=== PATIENT | female | born 2000 | race Asian ===

== ENCOUNTER 2022-12-29 11:44 | Emergency (ER) | payer SELFPAY ==
[2022-12-29] MEDS ORDERED: Sodium Chloride 0.9% 10 ML Syringe FLUSH PRN (12:11)
[2022-12-29] MEDS ORDERED: Sodium Chloride 0.9% 2.5 ML Syringe FLUSH PRN (12:11)
[2022-12-29] MEDS ORDERED: Morphine 4 MG/ML Syringe IVPUSH STA (12:12)
[2022-12-29] MEDS ORDERED: Sodium Chloride 0.9% 1,000 ML IV STA ×2 (12:12→13:03)
[2022-12-29] MEDS ORDERED: Ondansetron 4 MG/2 ML SDV IVPUSH STA (12:12)
[2022-12-29 12:25] LABS: BASOPHILS ABSOLUTE AUTO 0.1 K/uL (0.0-0.1); BASOPHILS PERCENT AUTO 0.8 % (0.0-1.5); EOSINOPHILS ABSOLUTE AUTO 0.4 K/uL (0.0-0.7); EOSINOPHILS PERCENT AUTO 5.9 % (0.0-7.0); HEMATOCRIT 42.9 % (36.0-46.0); HEMOGLOBIN 14.1 g/dL (12.0-16.0); LYMPHOCYTES ABSOLUTE AUTO 2.2 K/uL (0.6-2.4); LYMPHOCYTES PERCENT AUTO 34.4 % (16.0-40.0); MEAN CORPUSCULAR HEMOGLOBIN 29.3 pg (27.0-32.0); MEAN CORPUSCULAR HGB CONC 32.9 g/dL (31.0-37.0); MONOCYTES ABSOLUTE AUTO 0.3 K/uL (0.0-0.8); MONOCYTES PERCENT AUTO 5.3 % (0.0-15.0); NEUTROPHILS ABSOLUTE AUTO 3.5 K/uL (1.4-5.7); NEUTROPHILS PERCENT AUTO 53.6 % (48.0-80.0); NRBC ABSOLUTE 0 K/uL; PLATELET COUNT,PLT 358 K/uL (150-400); RED BLOOD CELL COUNT 4.82 M/uL (4.30-5.90); WHITE BLOOD CELL COUNT,WBC 6.43 K/uL (4.0-11.0)
[2022-12-29 12:51] LABS: A/G RATIO 0.9 (0.9-1.6); ALBUMIN 3.6 g/dL (3.4-5.0); BILIRUBIN TOTAL 0.3 mg/dL (0.2-1.0); CALCIUM 8.7 mg/dL (8.5-10.1); CARBON DIOXIDE,CO2 23.2 mmol/L (21.0-32.0); CREATININE 0.7 mg/dL (0.6-1.0); EST CRCL DRUG DOSING (CG) 107.93 mL/min; POTASSIUM,K 3.9 mmol/L (3.5-5.1); PROTEIN TOTAL,TP 7.4 g/dL (6.4-8.2)
[2022-12-29 14:32] LABS: APPEARANCE,URINE SLT CLOUDY; BILIRUBIN,URINE NEGATIVE (NEGATIVE); COLOR,URINE YELLOW; GLUCOSE,URINE NEGATIVE (NEGATIVE); KETONES,URINE NEGATIVE (NEGATIVE); LEUKOCYTE ESTERASE,URINE NEGATIVE (NEGATIVE); NITRITE,URINE NEGATIVE (NEGATIVE); OCCULT BLOOD,URINE MODERATE (NEGATIVE); PROTEIN,URINE NEGATIVE (NEGATIVE); UROBILINOGEN,URINE 0.2 EU/dL (<2.0)
[2022-12-29 14:43] LABS: BACTERIA,URINE FEW (NEGATIVE); EPITHELIAL CELLS,URINE OCCASIONAL (NONE-FEW); RBC,URINE 0-3 (0-2/HPF); WBC,URINE 0-4 (0-5/HPF)
[2022-12-29] MEDS ORDERED: Iopamidol 755 MG/ML 500 ML Multipack Bottle IVPUSH STA (15:11)
== END 2022-12-29 15:13 | disposition home or self-care (01) ==
LOC: MW.ED 11:44
DX: D73.89 Other diseases of spleen (principal); Z88.0 Allergy status to penicillin
CPT/HCPCS: 36415; 74177; 80053; 81001; 81025; 83690; 85025; 96361; 96374; 96375; 99284; J2270; J2405; J3490; J7030; Q9967

== ENCOUNTER 2025-02-19 19:58 | Emergency (ER) | payer OTHER ==
[2025-02-19 22:54] LABS: BASOPHILS ABSOLUTE AUTO 0.05 K/uL (0.00-0.20); BASOPHILS PERCENT AUTO 0.4 % (0.0-1.0); EOSINOPHILS ABSOLUTE AUTO 0.22 K/uL (0.00-0.45); EOSINOPHILS PERCENT AUTO 1.7 % (0.0-6.0); IMMATURE GRAN ABSOLUTE AUTO 0.05 K/uL (0.00-0.05); IMMATURE GRAN PERCENT AUTO 0.4 % (0.0-0.4); LYMPHOCYTES ABSOLUTE AUTO 2.64 K/uL (1.00-4.80); LYMPHOCYTES PERCENT AUTO 20.7 % (24.0-44.0); MEAN PLATELET VOLUME 9.3 fL (9.4-12.3); MONOCYTES ABSOLUTE AUTO 0.58 K/uL (0.00-0.80); MONOCYTES PERCENT AUTO 4.5 % (0.0-8.0); NEUTROPHILS ABSOLUTE AUTO 9.23 K/uL (1.80-7.70); NEUTROPHILS PERCENT AUTO 72.3 % (41.0-71.0); NRBC ABSOLUTE 0.00 K/uL (0.00-0.02); NRBC PERCENT 0.0 /100WBC (0.0-0.2); PLATELET COUNT,PLT 359 K/uL (150-400); RED BLOOD CELL COUNT 4.91 M/uL (4.10-5.30); WHITE BLOOD CELL COUNT,WBC 12.77 K/uL (3.9-11.3)
[2025-02-19 22:59] LABS: BLOOD UREA NITROGEN,BUN 8 mg/dL (7.0-18.0); CARBON DIOXIDE,CO2 24.4 mmol/L (21.0-32.0); CHLORIDE,CL 101 mmol/L (98-107); CREATININE 0.6 mg/dL (0.6-1.0); GLUCOSE RANDOM 91 mg/dL (74-106); POTASSIUM,K 3.7 mmol/L (3.5-5.1); SODIUM,NA 137 mmol/L (136-145)
[2025-02-19 23:01] LABS: ESTIMATED GFR 128 mL/min (>60)
[2025-02-19 23:08] LABS: APPEARANCE,URINE CLEAR; GLUCOSE,URINE NEGATIVE (NEGATIVE); OCCULT BLOOD,URINE NEGATIVE (NEGATIVE)
[2025-02-19 23:14] LABS: EPITHELIAL CELLS,URINE FEW (NONE-FEW)
== END 2025-02-20 01:26 | disposition left against medical advice (07) ==
LOC: MW.ED 19:58
DX: O21.9 Vomiting of pregnancy, unspecified (principal); Z88.0 Allergy status to penicillin; Z75.3 Unavailability and inaccessibility of health-care facilities; Z3A.09 9 weeks gestation of pregnancy
CPT/HCPCS: 36415; 80048; 81001; 85025; 96360; 99284; J7030; 99282

== ENCOUNTER 2025-04-07 18:39 | Emergency (ER) | payer OTHER ==
[2025-04-07 20:46] LABS: APPEARANCE,URINE CLEAR; GLUCOSE,URINE 250 mg/dL (NEGATIVE); OCCULT BLOOD,URINE NEGATIVE (NEGATIVE)
[2025-04-07 20:53] LABS: EPITHELIAL CELLS,URINE FEW (NONE-FEW)
== END 2025-04-07 20:48 | disposition home or self-care (01) ==
LOC: MW.ED 18:39
DX: O99.891 Other specified diseases and conditions complicating pregnancy (principal); R10.30 Lower abdominal pain, unspecified; Z79.899 Other long term (current) drug therapy; Z88.1 Allergy status to other antibiotic agents; Z3A.16 16 weeks gestation of pregnancy; W01.0XXA Fall on same level from slipping, tripping and stumbling without subsequent striking against object, initial encounter
CPT/HCPCS: 76815; 81001; 99284; A9270; 99283